=== PATIENT | female | born 1975 | race Asian ===

== ENCOUNTER 2022-10-20 01:06 | Emergency (ER) | payer BC ==
[2022-10-20 01:13] VITALS: PULSE 84; RESP 20; TEMP 98
[2022-10-20] MEDS ORDERED: ACET/COD 300 MG/30 MG STARTER PACK 6 TAB BTL PO STA (01:51)
--- NOTE | 2022-10-20 01:52 | ED ---
General Adult HPI - General Chief complaint: Extremity Problem,Nontraumatic Stated complaint: Right arm pain Time Seen by Provider: 10/20/22 01:37 Source: patient Mode of arrival: ambulatory Limitations: no limitations - History of Present Illness Initial comments: Dictation was produced using [employer] dictation software. please excuse any grammatical, word or spelling errors. Chief Complaint: 47-year-old female presents to the emergency department for right-sided wrist pain History of Present Illness: 47-year-old female presents with right-sided wrist pain. She also complains of paresthesias that effective for her second third and lateral half of the fourth digit. 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 Patient denies any pain in the elbow or shoulder. The ROS documented in this emergency department record has been reviewed and confirmed by me. Those systems with pertinent positive or negative responses have been documented in the HPI. All other systems are other negative and/or noncontributory. PHYSICAL EXAM: General Impression: Alert and oriented x3, not in acute distress HEENT: Normocephalic atraumatic, extra-ocular movements intact, pupils equal and reactive to light bilaterally, mucous membranes moist. Cardiovascular: Heart regular rate and rhythm Chest: Able to complete full sentences, no retractions, no tachypnea Musculoskeletal: Pulses present and equal in all extremities, no peripheral derrek ma Right upper extremity: Symptoms worsened with wrist flexion. Positive Phalen sign Motor: no focal deficits noted Neurological: CN II-XII grossly intact, no focal motor or sensory deficits noted Skin: Intact with no visualized rashes Psych: Normal affect and mood ED course: 47-year-old female presents to emergency room clinical presentation consistent with carpal tunnel syndrome. Vital signs upon arrival are within acceptable limits. Patient told to purchase a better wrist splint from one of the local pharmacies. Patient was placed in a wrist splint temporarily. She is given outpatient referral to Dr. Soriano of Hand surgery. Nursing notes and chart review was performed - Related Data Allergies Allergy/AdvReac Type Severity Reaction Status Date / Time No Known Allergies Allergy Verified 10/20/22 01:13 Review of Systems ROS Statement: Those systems with pertinent positive or pertinent negative responses have been documented in the HPI. ROS Other: All systems not noted in ROS Statement are negative. Past Medical History Past Medical History: No Reported History History of Any Multi-Drug Resistant Organisms: None Reported Additional Past Surgical History / Comment(s): thyroid ectomy Past Psychological History: No Psychological Hx Reported Smoking Status: Never smoker Past Alcohol Use History: None Reported Past Drug Use History: None Reported General Exam Limitations: no limitations Course Vital Signs 10/20/22 01:09 Temperature 98 F Pulse Rate 84 Respiratory 20 Rate Blood Pressure 208/94 O2 Sat by Pulse 99 Oximetry Disposition Clinical Impression: Carpal tunnel syndrome Disposition: HOME SELF-CARE Condition: Good Instructions (If sedation given, give patient instructions): Carpal Tunnel Surgery (DC) Is patient prescribed a controlled substance at d/c from ED?: No Referrals: Sherry Soriano DO [Doctor of Osteopathic Medicine] - 1-2 days Time of Disposition: 01:51
[2022-10-20 02:18] VITALS: BP 198/89
== END 2022-10-20 02:18 | disposition home or self-care (01) ==
LOC: EC 01:06
DX: G56.01 Carpal tunnel syndrome, right upper limb (principal); Z90.89 Acquired absence of other organs
CPT/HCPCS: 99283